=== PATIENT | female | born 1945 | race Caucasian/White ===

== ENCOUNTER → 2018-08-30 | Outpatient (CLI) | payer MEDICARE ==
--- NOTE | 2018-08-31 11:41 | MM ---
Reason for exam: screening (asymptomatic). Last mammogram was performed 1 year ago. History: Patient is postmenopausal and is nulliparous. Family history of breast cancer in paternal grandmother at age 52, breast cancer in mother at age 62, and breast cancer in maternal aunt at age 72. Benign excisional biopsy of the left breast, 1990. Reductions of both breasts, 1988. Took estrogen for 20 years beginning at age 38. Physical Findings: A clinical breast exam by your physician is recommended on an annual basis and results should be correlated with mammographic findings. MG 3D Screening Mammo W/Cad Bilateral CC, MLO, and XCCL view(s) were taken. Prior study comparison: August 30, 2017, bilateral MG 3d screening mammo w/cad. August 26, 2016, bilateral MG 3d screening mammo w/cad. There are scattered fibroglandular densities. Benign appearing bilateral calcifications. No suspicious abnormality. No significant changes when compared with prior studies. ASSESSMENT: Benign, BI-RAD 2 RECOMMENDATION: Routine screening mammogram of both breasts in 1 year.
== END ==
LOC: RADMAMWWP 14:51
PROVIDERS: ATTEND Internal Medicine
DX: Z12.31 Encounter for screening mammogram for malignant neoplasm of breast (principal)
CPT/HCPCS: 77063; 77067

== ENCOUNTER → 2019-09-17 | Outpatient (CLI) | payer MEDICARE ==
--- NOTE | 2019-09-17 14:40 | BD ---
EXAMINATION TYPE: Axial Bone Density DATE OF EXAM: 09/17/2019 COMPARISON: 08/24/2015 CLINICAL HISTORY: osteopenia Height: 5'3 Weight: 203 FRAX RISK QUESTIONS: History of Fracture in Adulthood: y Secondary Osteoporosis: 3. Menopause before 45: y RISK FACTORS HISTORY OF: Family History of Osteoporosis: y Postmenopausal woman: y MEDICATIONS: Thyroid Medications: Which medication: Levothyroxine How Lon years Additional Medications: advair, Additional History: EXAM MEASUREMENTS: Bone mineral densitometry was performed using the [employer] System. Bone mineral density as measured about the Lumbar spine is: ----- L1-L4(G/cm2): 1.488 T Score Values are as follows: ----- L2: 2.1 ----- L3: 3.7 ----- L4: 2.9 ----- L1-L4: 2.6 Bone mineral density has: Decreased -0.9% since study of: 08/24/2015 Bone mineral density about the R hip (g/cm2): 1.040 Bone mineral density about the L hip (g/cm2): 0.885 T Score values are as follows: -----R Neck: 0.0 -----L Neck: -1.1 -----R Total: 0.8 -----L Total: 0.4 Bone mineral density has: Increased 1.2% since study of: 08/24/2015 IMPRESSION: Osteopenia (T Score between -2.5 and -1). There is slightly increased risk of fracture and the patient may be considered for treatment. Re-Screen 2-5 years. NOTE: T-SCORE=SD OF THE YOUNG ADULT MEAN.
--- NOTE | 2019-09-18 12:16 | MM ---
Reason for exam: screening (asymptomatic). Last mammogram was performed 1 year and 1 month ago. History: Patient is postmenopausal and is nulliparous. Family history of breast cancer in paternal grandmother at age 52, breast cancer in mother at age 62, and breast cancer in maternal aunt at age 72. Benign excisional biopsy of the left breast, 1990. Reductions of both breasts, 1988. Took estrogen for 20 years beginning at age 38. Physical Findings: A clinical breast exam by your physician is recommended on an annual basis and results should be correlated with mammographic findings. MG 3D Screening Mammo W/Cad Bilateral CC and MLO view(s) were taken. Prior study comparison: August 30, 2018, bilateral MG 3d screening mammo w/cad. August 30, 2017, bilateral MG 3d screening mammo w/cad. There are scattered fibroglandular densities. Finding #1: Stable architectural distortion in the lower quadrant of the right breast consistent with known reduction changes. Finding #2: There are typically benign round, diffuse/scattered, regional, grouped calcifications in both breasts. There is no discrete abnormality. ASSESSMENT: Benign, BI-RAD 2 RECOMMENDATION: Routine screening mammogram of both breasts in 1 year.
== END | disposition home or self-care (01) ==
LOC: RADMAMWWP 13:58
PROVIDERS: ATTEND Family Medicine
DX: Z12.31 Encounter for screening mammogram for malignant neoplasm of breast (principal); M85.88 Other specified disorders of bone density and structure, other site
CPT/HCPCS: 77063; 77067; 77080

== ENCOUNTER → 2020-11-26 | Outpatient (CLI) | payer MEDICARE ==
--- NOTE | 2020-11-27 14:55 | MM ---
Reason for exam: screening (asymptomatic). Last mammogram was performed 1 year and 2 months ago. History: Patient is postmenopausal and is nulliparous. Family history of breast cancer in paternal grandmother at age 52, breast cancer in mother at age 62, and breast cancer in maternal aunt at age 72. Benign excisional biopsy of the left breast, 1990. Reductions of both breasts, 1988. Took estrogen for 20 years beginning at age 38. Physical Findings: A clinical breast exam by your physician is recommended on an annual basis and results should be correlated with mammographic findings. MG 3D Screening Mammo W/Cad Bilateral CC and MLO view(s) were taken. Prior study comparison: September 17, 2019, bilateral MG 3d screening mammo w/cad. August 30, 2018, bilateral MG 3d screening mammo w/cad. The breast tissue is heterogeneously dense. This may lower the sensitivity of mammography. There are benign appearing round, regional calcifications bilaterally. There is no discrete abnormality. ASSESSMENT: Benign, BI-RAD 2 RECOMMENDATION: Routine screening mammogram of both breasts in 1 year.
== END | disposition home or self-care (01) ==
LOC: RADMAMWWP 14:50
PROVIDERS: ATTEND Family Medicine
DX: Z12.31 Encounter for screening mammogram for malignant neoplasm of breast (principal); Z80.3 Family history of malignant neoplasm of breast
CPT/HCPCS: 77063; 77067

== ENCOUNTER → 2022-02-15 | Outpatient (CLI) | payer MEDICARE ==
--- NOTE | 2022-02-15 13:50 | BD ---
EXAMINATION TYPE: Axial Bone Density DATE OF EXAM: 02/15/2022 COMPARISON: NONE CLINICAL HISTORY: 77 year old Female. ICD-10 CODE: M810 Height: 63 Weight: 210.0 FRAX RISK QUESTIONS: Alcohol (3 or more units per day): no Family History (Parent hip fracture): no Glucocorticoids (More than 3mos): no (Ex: prednisone, prednisolone, methylprednisolone, dexamethasone, and hydrocortisone). History of Fracture in Adulthood: yes Secondary Osteoporosis: 1. Type 1 Diabetes: no 2. Hyperthyroidism: no 3. Menopause before 45: yes 4. Malnutrition: no 5. Chronic liver disease: no Rheumatoid Arthritis: no Current Tobacco Use: no RISK FACTORS HISTORY OF: Surgery to Spine/Hip(right/left)/Wrist (right/left): no Family History of Osteoporosis: yes Active: yes Diet low in dairy products/other sources of calcium: yes Postmenopausal woman: yes Lost more than 2 inches in height since high school: no MEDICATIONS: Prednisone or other steroids: yes How Long: for asthma Thyroid Medications: levothyroxine How Long: since 2009 Additional History: EXAM MEASUREMENTS: Bone mineral densitometry was performed using the [employer] System. Bone mineral density as measured about the Lumbar spine is: ----- L1-L4(G/cm2): 1.463 T Score Values are as follows: ----- L1: 1.7 ----- L2: 2.4 ----- L3: 2.8 ----- L4: 2.5 ----- L1-L4: 2.4 Bone mineral density has: decreased -3.0% since 09.17.2019 Bone mineral density about the R hip (g/cm2): 0.977 Bone mineral density about the L hip (g/cm2): 0.839 T Score values are as follows: -----R Neck: -0.4 -----L Neck: -1.4 -----R Total: 0.2 -----L Total: 0.3 Bone mineral density has: decreased -4.1% since study of: 09.17.2019 FRAX%s: The graph provided illustrates a 15.2% chance for a major osteoporotic fx and a 2.6% chance f or the hips probability for fx in 10 years time. IMPRESSION: Osteopenia (T Score between -2.5 and -1). There is slightly increased risk of fracture and the patient may be considered for treatment. Re-Screen 2-5 years. NOTE: T-SCORE=SD OF THE YOUNG ADULT MEAN.
--- NOTE | 2022-02-16 11:27 | MM ---
Reason for exam: screening (asymptomatic). Last mammogram was performed 1 year and 3 months ago. History: Patient is postmenopausal and is nulliparous. Family history of breast cancer in paternal grandmother at age 52, breast cancer in mother at age 62, and breast cancer in maternal aunt at age 72. Benign excisional biopsy of the left breast, 1990. Reductions of both breasts, 1988. Took estrogen for 20 years beginning at age 38. Physical Findings: A clinical breast exam by your physician is recommended on an annual basis and results should be correlated with mammographic findings. MG 3D Screening Mammo W/Cad Bilateral CC and MLO view(s) were taken. XCCL view(s) were taken of the left breast. Prior study comparison: November 26, 2020, bilateral MG 3d screening mammo w/cad. September 17, 2019, bilateral MG 3d screening mammo w/cad. There are scattered fibroglandular densities. Stable benign calcifications. There is no discrete abnormality. No significant changes when compared with prior studies. ASSESSMENT: Benign, BI-RAD 2 RECOMMENDATION: Routine screening mammogram of both breasts in 1 year.
== END | disposition home or self-care (01) ==
LOC: RADMAMWWP 12:50
PROVIDERS: ATTEND Family Medicine
DX: Z12.31 Encounter for screening mammogram for malignant neoplasm of breast (principal); M85.852 Other specified disorders of bone density and structure, left thigh; Z80.3 Family history of malignant neoplasm of breast; Z78.0 Asymptomatic menopausal state
CPT/HCPCS: 77063; 77067; 77080

== ENCOUNTER → 2023-02-16 | Outpatient (CLI) | payer MEDICARE ==
--- NOTE | 2023-02-17 09:21 | MM ---
Reason for Exam: Screening (asymptomatic). Last screening mammogram was performed 12 month(s) ago. Patient History: Menarche at age 14. Patient has no children. Left ovary removed at age 38. Right ovary removed at age 38. Hysterectomy at age 38. Postmenopausal. Estrogen for 20 years from age 38 until age 58. 1988, Bilateral Reduction. 1990, Benign Excisional Biopsy on the left side. Paternal grandmother had breast cancer, age 52. Maternal aunt had breast cancer, age 72. Mother had breast cancer, age 62. Risk Values: Rosario 5 year model risk: 4.1%. NCI Lifetime model risk: 8.2%. Prior Study Comparison: 09/17/2019 Bilateral Screening Mammogram, [facility]. 11/26/2020 Bilateral Screening Mammogram, [facility]. 02/15/2022 Bilateral Screening Mammogram, [facility]. Tissue Density: The breast tissue is heterogeneously dense. This may lower the sensitivity of mammography. Findings: Analyzed By CAD. There are scattered and loosely grouped tiny benign appearing round calcifications redemonstrated throughout the bilateral breasts. Benign appearing bilateral axillary lymph nodes are again seen. There is no suspicious new group of microcalcifications or new suspicious mass in either breast. Overall Assessment: Benign, BI-RAD 2 Management: Screening Mammogram of both breasts in 1 year. A clinical breast exam by your physician is recommended on an annual basis and results should be correlated with mammographic findings. Electronically signed and approved by: Ty Guevara M.D.
== END | disposition home or self-care (01) ==
LOC: RADMAMWWP 13:13
PROVIDERS: ATTEND Family Medicine
DX: Z12.31 Encounter for screening mammogram for malignant neoplasm of breast (principal); Z78.0 Asymptomatic menopausal state; Z80.3 Family history of malignant neoplasm of breast
CPT/HCPCS: 77063; 77067

== ENCOUNTER → 2024-02-21 | Outpatient (CLI) | payer MEDICARE ==
--- NOTE | 2024-02-22 14:04 | BD ---
EXAMINATION TYPE: Axial Bone Density DATE OF EXAM: 02/21/2024 CLINICAL HISTORY: 79 years old Female. ICD-10 CODE: M85.80 OT DISRD OF BONE DENSITY Height: 63" Weight: 205lbs FRAX RISK QUESTIONS: Alcohol (3 or more units per day): No Family History (Parent hip fracture): No Glucocorticoids (More than 3mos): Yes, inhalers (Ex: prednisone, prednisolone, methylprednisolone, dexamethasone, and hydrocortisone). History of Fracture in Adulthood: Yes Secondary Osteoporosis: 1. Type 1 Diabetes: No 2. Hyperthyroidism: No 3. Menopause before 45: Yes 4. Malnutrition: No 5. Chronic liver disease: No Rheumatoid Arthritis: No Current Tobacco Use: No RISK FACTORS HISTORY OF: Hip Fracture (Right/Left): No Spine Fracture: No History of Wrist Fracture: No Surgery to Spine/Hip(right/left)/Wrist (right/left): No MEDICATIONS: Thyroid Medications: Yes Which medication: Levothyroxine How Lon years Osteoporosis Medications: No EXAM MEASUREMENTS: Bone mineral densitometry was performed using the [employer] System. Bone mineral density as measured about the Lumbar spine is: ----- L1-L4(G/cm2): 1.535 T Score Values are as follows: ----- L1: 2.4 ----- L2: 2.3 ----- L3: 4.0 ----- L4: 3.0 ----- L1-L4: 3.0 Z Score Values are as follows: ----- L1: 3.2 ----- L2: 3.2 ----- L3: 4.8 ----- L4: 3.8 ----- L1-L4: 3.8 Bone mineral density has: increased 3.5% since study of: 02/15/2022 Bone mineral density about the R hip (g/cm2): 0.977 Bone mineral density about the L hip (g/cm2): 1.033 T Score values are as follows: -----R Neck: -0.2 -----L Neck: -1.1 -----R Total: -0.2 -----L Total: 0.2 Z Score values are as follows: -----R Neck: 1.2 -----L Neck: 0.3 -----R Total: 0.9 -----L Total: 1.4 Bone mineral density has: decreased -3.4% since study of: 02/15/2022 Bone mineral density about the R Wrist (g/cm2): Bone mineral density about the L Wrist (g/cm2): T Score values are as follows: -----Dist. R+U: -----Prox. R+U: -----Radius total: Z Score values are as follows: -----Dist. R+U: -----Prox. R+U: -----Radius total: Bone mineral density has: % since study of: FRAX%s: The graph provided illustrates a % chance for a major osteoporotic fx and a % chance for the hips probability for fx in 10 years time. IMPRESSION: Normal (Values between +1 and -1 indicate normal bone mass). Consider repeating this study in 5 year s or sooner if there is some new clinical indication. NOTE: T-SCORE=SD OF THE YOUNG ADULT MEAN.
--- NOTE | 2024-02-25 20:39 | MM ---
Reason for Exam: Screening (asymptomatic). Last screening mammogram was performed 12 month(s) ago. Patient History: Menarche at age 14. Patient has no children. Left ovary removed at age 38. Right ovary removed at age 38. Hysterectomy at age 38. Postmenopausal. Estrogen for 20 years from age 38 until age 58. 1988, Bilateral Reduction. 1990, Benign Excisional Biopsy on the left side. Paternal grandmother had breast cancer, age 52. Maternal aunt had breast cancer, age 72. Mother had breast cancer, age 62. Risk Values: Rosario 5 year model risk: 4.0%. NCI Lifetime model risk: 7.6%. Prior Study Comparison: 11/26/2020 Bilateral Screening Mammogram, [facility]. 02/15/2022 Bilateral Screening Mammogram, [facility]. 02/16/2023 Bilateral MG 3D screening mammo w/cad, [facility]. Tissue Density: There are scattered areas of fibroglandular density. Findings: Analyzed By CAD. Benign dermal calcifications on both sides. Unchanged bilateral areas of asymmetric density. There is no suspicious group of microcalcifications or new suspicious mass in either breast. Overall Assessment: Benign, BI-RAD 2 Management: Screening Mammogram of both breasts in 1 year. See note below in regards to the patient's increased 5 year Rosario score. Patient should continue monthly self-breast exams. A clinical breast exam by your physician is recommended on an annual basis. This exam should not preclude additional follow-up of suspicious palpable abnormalities. Note on Rosario scores and lifetime risk: 1. A Rosario score greater than 3% is considered moderate risk. If this is the case, consider specialist referral to assess eligibility for a risk reducing agent. 2. If overall lifetime risk for the development of breast cancer is 20% or higher, the patient may qualify for future screening with alternating mammogram and breast MRI. Electronically signed and approved by: Charbel Caraballo M.D. Radiologist
== END | disposition home or self-care (01) ==
LOC: RADMAMWWP 15:44
PROVIDERS: ATTEND Family Medicine
DX: Z12.31 Encounter for screening mammogram for malignant neoplasm of breast (principal); M85.88 Other specified disorders of bone density and structure, other site; Z78.0 Asymptomatic menopausal state; Z80.3 Family history of malignant neoplasm of breast
CPT/HCPCS: 77063; 77067; 77080